=== PATIENT | female | born 1945 | race Caucasian/White ===

== ENCOUNTER 2017-04-08 23:34 | Emergency (ER) | payer OTHER ==
[~2017-04-08] VITALS: Ht 180.3 cm; Wt 84.4 kg
[~2017-04-08 23:34] MED LIST: ASPIRIN325 PO; ASPIRIN81 M2 PO; CLEOCIN HCL300 MG PO; ELIQUIS5 MG PO; HYDROCODONE-AP1 EAC6 PO; IBUPROFEN 200200 M1 PO; NOHOMEMEDICATIONS; SORINE 80 MG TA80 M1 PO; TYLENOL325 MG PO; ZOFRAN ODT4 MG PO
[2017-04-09 00:49] LABS: INFLUENZA A ANTIGEN None Detected (None Detect); INFLUENZA B ANTIGEN None Detected (None Detect)
[2017-04-09 01:03] VITALS: BP 143/89
== END 2017-04-09 01:29 | disposition home or self-care (01) ==
LOC: M.ERS 23:34
PROVIDERS: Nurse Practitioner Family
DX: J00 Acute nasopharyngitis [common cold] (principal); F10.99 Alcohol use, unspecified with unspecified alcohol-induced disorder; Z88.0 Allergy status to penicillin; Z88.1 Allergy status to other antibiotic agents; Z88.8 Allergy status to other drugs, medicaments and biological substances; Z90.710 Acquired absence of both cervix and uterus; Z98.890 Other specified postprocedural states

== ENCOUNTER 2017-10-28 10:51 | Emergency (ER) | payer OTHER ==
[~2017-10-28] VITALS: Ht 180.3 cm; Wt 84.4 kg
[2017-10-28 11:51] LABS: ABSOLUTE BASOPHILS 0.1 thou/uL (0.0-0.2); ABSOLUTE EOSINOPHILS 0.2 thou/uL (0.0-0.7); ABSOLUTE LYMPHOCYTES 1.7 thou/uL (0.8-5.3); ABSOLUTE MONOCYTES 0.6 thou/uL (0.0-1.2); ABSOLUTE NEUTROPHILS 4.6 thou/uL (1.6-8.1); BASOPHILS 1.1 %; EOSINOPHILS 2.6 %; HEMATOCRIT 39.4 % (37.0-47.0); HEMOGLOBIN 13.1 gm/dL (12.0-15.0); LYMPHOCYTES 24.1 %; MCH 29.8 pg (26.0-34.0); MCHC 33.3 g/dL (28.0-37.0); MCV 89.5 fL (80.0-100.0); MONOCYTES 7.9 %; MPV 8.9 fl. (7.2-11.1); NUCLEATED RBCS 0 /100WBC; PLATELET COUNT* 157 thou/uL (150-400); POLYS 64.3 %; RDW-CV 13.4 % (10.5-14.5); WBC 7.1 thou/uL (4.0-11.0)
[2017-10-28 12:04] LABS: ANION GAP 3 mmol/L (7-16); BUN 9 mg/dL (7-18); CALCIUM 9.1 mg/dL (8.5-10.1); CHLORIDE 106 mmol/L (98-107); CO2 30 mmol/L (21-32); CREATININE 0.6 mg/dL (0.6-1.3); GLUCOSE 98 mg/dL (70-99); POTASSIUM 4.1 mmol/L (3.5-5.1); SODIUM 139 mmol/L (136-145)
[2017-10-28 12:15] LABS: ALBUMIN 3.2 g/dL (3.4-5.0); ALKALINE PHOSPHATASE 127 U/L (46-116); NT-PRO BRAIN NAT PEPTIDE 151 pg/mL (<300); SGOT 15 U/L (15-37); SGPT 17 U/L (30-65); TOTAL BILIRUBIN 0.6 mg/dL (<0.1-1.0); TOTAL PROTEIN 6.4 g/dL (6.4-8.2); TROPONIN-I LEVEL <0.06 ng/mL (<0.06)
[2017-10-28] MEDS ORDERED: TESSALON PERLE100 MG PO (12:33)
[2017-10-28] MEDS ORDERED: PREDNISONE 20 M20 MG PO (12:33)
[2017-10-28] MEDS ORDERED: VENTOLIN HFA 1818 GM INH (12:33)
[2017-10-28 12:41] VITALS: BP 122/71
== END 2017-10-28 12:42 | disposition home or self-care (01) ==
LOC: M.ERS 10:51
PROVIDERS: Nurse Practitioner Family
DX: J20.9 Acute bronchitis, unspecified (principal); R12 Heartburn; I48.91 Unspecified atrial fibrillation; Z91.041 Radiographic dye allergy status; Z88.0 Allergy status to penicillin; Z88.1 Allergy status to other antibiotic agents; Z90.710 Acquired absence of both cervix and uterus; Z90.49 Acquired absence of other specified parts of digestive tract

== ENCOUNTER 2018-06-15 15:49 | Emergency (ER) | payer OTHER ==
[~2018-06-15] VITALS: Ht 182.9 cm; Wt 78.1 kg
[~2018-06-15 15:49] MED LIST changes: +PREDNISONE 20 M20 MG PO; +TESSALON PERLE100 MG PO; +VENTOLIN HFA 1818 GM INH
[2018-06-15 16:09] LABS: URINE BILIRUBIN NEGATIVE (Negative); URINE BLOOD NEGATIVE (Negative); URINE CLARITY CLEAR; URINE COLOR YELLOW; URINE GLUCOSE-RANDOM NEGATIVE (Negative); URINE KETONES NEGATIVE (Negative); URINE LEUKOCYTES NEGATIVE (Negative); URINE NITRITE NEGATIVE (Negative); URINE PROTEIN NEGATIVE (Negative); URINE SPECIFIC GRAVITY >= 1.030 (1.005-1.030); URINE UROBILINOGEN 0.2 E.U./dl (0.2-1.0)
[2018-06-15 16:32] LABS: HEMATOCRIT 43.5 % (37.0-47.0); HEMOGLOBIN 14.8 gm/dL (12.0-15.0); MCHC 34.1 g/dL (28.0-37.0); MCV 88.2 fL (80.0-100.0); MPV 9.4 fl. (7.2-11.1); NUCLEATED RBCS 0 /100WBC; PLATELET COUNT* 153 thou/uL (150-400); RBC 4.93 mil/uL (4.20-5.00); RDW-CV 13.2 % (10.5-14.5); WBC 10.1 thou/uL (4.0-11.0)
[2018-06-15 16:42] LABS: APTT 26.3 Seconds (25.0-31.3); PROTIME 10.3 Seconds (9.20-11.50)
[2018-06-15 16:48] LABS: ALBUMIN 3.7 g/dL (3.4-5.0); ALKALINE PHOSPHATASE 132 U/L (46-116); ANION GAP 8 mmol/L (7-16); BUN 16 mg/dL (7-18); CALCIUM 9.1 mg/dL (8.5-10.1); CHLORIDE 104 mmol/L (98-107); CO2 27 mmol/L (21-32); CREATININE 0.8 mg/dL (0.6-1.3); GLUCOSE 142 mg/dL (70-99); LIPASE 193 U/L (73-393); POTASSIUM 4.5 mmol/L (3.5-5.1); SGOT 17 U/L (15-37); SGPT 18 U/L (30-65); SODIUM 139 mmol/L (136-145); TOTAL BILIRUBIN 0.8 mg/dL (<0.1-1.0); TOTAL PROTEIN 7.2 g/dL (6.4-8.2); TROPONIN-I LEVEL <0.06 ng/mL (<0.06)
[2018-06-15 17:03] LABS: ABSOLUTE EOSINOPHILS 0.1 thou/uL (0.0-0.7); ABSOLUTE LYMPHOCYTES 0.2 thou/uL (0.8-5.3); ABSOLUTE MONOCYTES 0.1 thou/uL (0.0-1.2); ABSOLUTE NEUTROPHILS 9.7 thou/uL (1.6-8.1); PLATELET ESTIMATE ADEQUATE
[2018-06-15] MEDS ORDERED: ZOFRAN ODT4 MG PO (19:38)
[2018-06-15 20:03] VITALS: BP 110/66
--- NOTE | 2018-06-16 17:37 | EKG ---
[place] [address] ELECTROCARDIOGRAM REPORT Name: DAYLIN TRINIDAD Room: [facility]#: [id number] Admission: 06/15/18 Attend Phys: Discharge: 06/15/18 Date of : 41 Report #: [id number] THIS REPORT FOR: //name// [facility] ED Test Date: 2018-06-15 Test Time: 16:19:24 Pat Name: DAYLIN TRINIDAD Department: Room: Gender: F Skiing Instructor: Keith BOWLING : 1945 Requested By: Brielle Lin Order Number: [id number] MD: Bimal Byrd Measurements Intervals [place] Rate: 79 P: 18 KS: 160 QRS: 38 QRSD: 77 T: 38 QT: 382 QTc: 438 Interpretive Statements Sinus rhythm Abnormal R-wave progression, early transition Compared to ECG 06/20/2015 02:02:49 ST (T wave) deviation no longer present Electronically Signed On 06-16-2018 17:37:03 CDT by Bimal Byrd [email or web address] <ELECTRONICALLY SIGNED> By: Bimal Byrd MD, [facility] 06/16/18 1737 1619 1619 Bimal Bryd MD, FACC /EPI
== END 2018-06-15 20:05 | disposition home or self-care (01) ==
LOC: M.ERS 15:49
PROVIDERS: Physician Assistant
DX: K52.9 Noninfective gastroenteritis and colitis, unspecified (principal); I48.91 Unspecified atrial fibrillation; H35.30 Unspecified macular degeneration; Z88.8 Allergy status to other drugs, medicaments and biological substances; Z88.1 Allergy status to other antibiotic agents; Z91.041 Radiographic dye allergy status; Z88.0 Allergy status to penicillin; Z90.710 Acquired absence of both cervix and uterus; Z90.49 Acquired absence of other specified parts of digestive tract

== ENCOUNTER → 2019-12-11 | Outpatient (CLI) | payer OTHER | LOC: M.RAD 11-19 14:30 | PROVIDERS: ATTEND Internal Medicine | DX: M85.88 Other specified disorders of bone density and structure, other site (principal); R29.890 Loss of height ==